=== PATIENT | female | born 1960 | race Caucasian/White ===

== ENCOUNTER 2021-10-01 22:54 | Inpatient (IN) | payer SELFPAY ==
[2021-10-02 00:23] LABS: Absolute Lymphocytes (CBC) 1.6 K/uL (0.7-4.9); Hematocrit 39.1 % (36.0-45.0); Lymphocytes % 29.1 % (15.3-44.8); MCV 91.9 fL (80-100); MPV 7.7 fL (7.6-11.3); RBC Red Blood Cell Count 4.26 M/uL (3.86-4.86)
[2021-10-02 00:31] LABS: Protime INR 0.96
[2021-10-02 00:43] LABS: ALT/SGPT 22 U/L (12-78); AST/SGOT 18 U/L (15-37); Albumin 4.2 g/dL (3.4-5.0); Alkaline Phosphatase 78 U/L (45-117); BUN Blood Urea Nitrogen 16 mg/dL (7-18); Bicarbonate 28 mmol/L (21-32); Bilirubin Direct < 0.1 mg/dL (0-0.2); Bilirubin Total 0.3 mg/dL (0.2-1.0); Creatine Phosphokinase 132 U/L (26-192); Glomerular Filtration Rate 80 ml/min (=/>90); Glucose Level 109 mg/dL (74-106); Lipase 151 U/L (73-393); Potassium 3.5 mmol/L (3.5-5.1); Protein, Total 6.9 g/dL (6.4-8.2); Sodium Level 136 mmol/L (136-145)
[2021-10-02 00:44] LABS: Troponin High Sensitivity 153.7 pg/mL (<58.9)
[2021-10-02 00:54] LABS: Urine Blood Trace-intact (Negative); Urine Glucose Negative (Negative); Urine Protein Negative (Negative)
[2021-10-02 01:21] LABS: Barbiturates NEGATIVE (NEGATIVE); Benzodiazepines NEGATIVE (NEGATIVE); Cocaine NEGATIVE (NEGATIVE); METHAMPHETAM NEGATIVE (NEGATIVE); Methadone NEGATIVE (NEGATIVE); Opiates NEGATIVE (NEGATIVE); Phencyclidine NEGATIVE (NEGATIVE); THC Cannibis NEGATIVE (NEGATIVE)
--- NOTE | 2021-10-02 01:50 | ER ---
Nurse's Notes [facility] Name: Monse Clements Age: 61 yrs Sex: Female : 1960 Arrival Date: 10/01/2021 Time: 22:57 Bed 24 Private MD: Diagnosis: Confusion, elevated troponin level Presentation: 10/01 23:05 Chief complaint: Patient's son or daughter states: her dad called her at 2222 to tell bb her pt was confused, repeating same questions over and over couldn't remember what they did that night. 23:16 Coronavirus screen: At this time, the client does not indicate any symptoms associated bb with coronavirus-19. Ebola Screen: No symptoms or risks identified at this time. Initial Sepsis Screen: Does the patient meet any 2 criteria? No. Patient's initial sepsis screen is negative. Does the patient have a suspected source of infection? No. Patient's initial sepsis screen is negative. Risk Assessment: Do you want to hurt yourself or someone else? Patient reports no desire to harm self or others. Onset of symptoms was October 01, 2021 at 21:00. 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 - Social history:: Smoking status: Patient denies any tobacco usage or history of. Screenin/16 02:04 Abuse screen: Denies threats or abuse. Denies injuries from another. Nutritional tw5 screening: No deficits noted. Tuberculosis screening: No symptoms or risk factors identified. Fall Risk Mental Status- Overestimates/Forgets Limitations (15 pts.). Assessment: 10/01 23:41 General: Appears comfortable, Behavior is calm, cooperative. Pain: Denies pain. Neuro: ll3 Level of Consciousness is awake, alert, obeys commands, Oriented to person, place, Speech is normal, Facial symmetry appears normal, Reports dizziness, since 2342. Cardiovascular: Patient's skin is warm and dry. Respiratory: Respiratory effort is even, unlabored, Respiratory pattern is regular, symmetrical. Derm: Skin is pink, warm \\T\\ dry. 10/02 02:02 Reassessment: No changes from previously documented assessment. Patient and/or family tw5 updated on plan of care and expected duration. Pain level reassessed. Patient is alert, oriented x 3, equal unlabored respirations, skin warm/dry/pink. Neuro: Level of Consciousness is awake, alert, obeys commands, Oriented to person, place. Vital Signs: 10/01 23:16 BP 142 / 82; Pulse 75; Resp 18 S; Temp 98.2(O); Pulse Ox 100% on R/A; Weight 40.82 kg bb (R); Height 5 ft. 2 in. (157.48 cm) (R); Pain 0/10; 10/02 02:04 BP 130 / 82; Pulse 70; Resp 18; Pulse Ox 100% on R/A; tw5 10/01 23:16 Body Mass Index 16.46 (40.82 kg, 157.48 cm) bb ED Course: 10/01 22:57 Patient arrived in ED. bp1 23:11 Guilherme Taylor MD is Attending Physician. 7 23:16 Princess Young is Primary Nurse. tw5 23:17 Triage completed. bb 23:17 Arm band placed on Patient placed in an exam room, on a stretcher, on cardiac tech, bb on pulse oximetry. Family accompanied patient. 23:[address] via stretcher. tw5 23:37 CT Stroke Brain w/o Contrast In Process Unspecified. EDMS 23:58 Stroke CXR 1 View In Process Unspecified. EDMS 10/02 00:00 Inserted saline lock: 20 gauge in right antecubital area, using aseptic technique. ll3 Blood collected. 00:44 Notified ED physician of a critical lab result(s). troponin of 153.7 Dr Taylor notified.bb 01:48 Jomar Garcia MD is Hospitalizing Provider. 7 02:04 Patient has correct armband on for positive identification. Placed in gown. Bed in low tw5 position. Call light in reach. Side rails up X 1. Adult w/ patient. 02:04 No provider procedures requiring assistance completed. tw5 02:04 COVID swab sent to lab. tw5 02:06 SARS-COV-2 RT PCR (Document "Date of Onset" if Symptomatic) Sent. tw5 03:41 Patient admitted, IV remains in place. tw5 Administered Medications: 02:02 Drug: Aspirin Chewable Tablet 324 mg Route: PO; 03:41 Follow up: Response: No adverse reaction Medication: 02:04 VIS not applicable for this client. Outcome: 01:49 Decision to Hospitalize by Provider. 7 03:41 Admitted to ER Hold. Please see [facility] for further documentation. 03:41 Condition: stable 03:41 Instructed on the need for admit. 15:42 Patient left the ED. jh6 Signatures: Dispatcher [employer] EDMS Maureen Hdz RN RN Marielos Caceres [facility] Guilherme Taylor MD MD 7 Princess Young [facility] Kemi Agarwal RN RN 3 Sylvie Felton RN RN 6
--- NOTE | 2021-10-02 01:50 | EDPHYS ---
Physician Documentation [facility] Name: Monse Clements Age: 61 yrs Sex: Female : 1960 Arrival Date: 10/01/2021 Time: 22:57 Bed 24 Private MD: ED Physician Guilherme Taylor HPI: 10/01 23:15 This 61 yrs old Female presents to ER via Ambulatory with complaints of Confusion, mh7 Anxiety. 23:15 The patient presents with confusion, memory problem, keeps repeating questions.. mh7 23:15 Onset: The symptoms/episode began/occurred today. mh7 23:15 Possible causes: unknown. Associated signs and symptoms: Pertinent negatives: abdominal mh7 pain, agitation, ataxia, blurred vision, chest pain, combativeness, diaphoresis, diarrhea, dizziness, headache, lightheadedness, nausea, numbness, palpitations, seizure, shortness of breath, tingling, vertigo, vomiting, weakness. Current symptoms: In the emergency department the patient's symptoms are unchanged from the initial presentation. Patient's baseline: Neuro: alert and fully oriented, Motor: no deficits, Ambulation: walks without assistance, Speech: normal. 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 - Social history:: Smoking status: Patient denies any tobacco usage or history of. ROS: 23:15 Constitutional: Negative for fever, chills, and weight loss, Eyes: Negative for injury, mh7 pain, redness, and discharge, ENT: Negative for injury, pain, and discharge, Neck: Negative for injury, pain, and swelling, Cardiovascular: Negative for chest pain, palpitations, and edema, Respiratory: Negative for shortness of breath, cough, wheezing, and pleuritic chest pain, Abdomen/GI: Negative for abdominal pain, nausea, vomiting, diarrhea, and constipation, Back: Negative for injury and pain, : Negative for injury, bleeding, discharge, and swelling, MS/Extremity: Negative for injury and deformity, Skin: Negative for injury, rash, and discoloration, Psych: Negative for depression, anxiety, suicide ideation, homicidal ideation, and hallucinations, Allergy/Immunology: Negative for hives, rash, and allergies, Endocrine: Negative for neck swelling, polydipsia, polyuria, polyphagia, and marked weight changes, Hematologic/Lymphatic: Negative for swollen nodes, abnormal bleeding, and unusual bruising. Exam: 23:15 Constitutional: This is a well developed, well nourished patient who is awake, alert, mh7 and in no acute distress. Head/Face: Normocephalic, atraumatic. Eyes: Pupils equal round and reactive to light, extra-ocular motions intact. Lids and lashes normal. Conjunctiva and sclera are non-icteric and not injected. Cornea within normal limits. Periorbital areas with no swelling, redness, or edema. ENT: Nares patent. No nasal discharge, no septal abnormalities noted. Tympanic membranes are normal and external auditory canals are clear. Oropharynx with no redness, swelling, or masses, exudates, or evidence of obstruction, uvula midline. Mucous membranes moist. Neck: Trachea midline, no thyromegaly or masses palpated, and no cervical lymphadenopathy. Supple, full range of motion without nuchal rigidity, or vertebral point tenderness. No Meningismus. Chest/axilla: Normal chest wall appearance and motion. Nontender with no deformity. No lesions are appreciated. Cardiovascular: Regular rate and rhythm with a normal S1 and S2. No gallops, murmurs, or rubs. Normal PMI, no JVD. No pulse deficits. Respiratory: Lungs have equal breath sounds bilaterally, clear to auscultation and percussion. No rales, rhonchi or wheezes noted. No increased work of breathing, no retractions or nasal flaring. Abdomen/GI: Soft, non-tender, with normal bowel sounds. No distension or tympany. No guarding or rebound. No evidence of tenderness throughout. Back: No spinal tenderness. No costovertebral tenderness. Full range of motion. Skin: Warm, dry with normal turgor. Normal color with no rashes, no lesions, and no evidence of cellulitis. MS/ Extremity: Pulses equal, no cyanosis. Neurovascular intact. Full, normal range of motion. 23:15 Neuro: Orientation: to person, place, Mentation: is normal, Memory: recent memory is impaired, Cranial nerves: grossly normal, Cerebellar function: is grossly normal, Motor: is normal, Sensation: is normal, Gait: is steady, at a normal pace, without difficulty, seizure activity, is not displayed by the patient, Abnormal movements: there are no abnormal movements. 23:15 Psych: Behavior/mood is cooperative, Affect is calm, Oriented to person, place, Patient has no thoughts/intents to harm self or others. Recent memory is impaired. Delusions/hallucinations are not present. Vital Signs: 23:16 BP 142 / 82; Pulse 75; Resp 18 S; Temp 98.2(O); Pulse Ox 100% on R/A; Weight 40.82 kg bb (R); Height 5 ft. 2 in. (157.48 cm) (R); Pain 0/10; 10/02 02:04 BP 130 / 82; Pulse 70; Resp 18; Pulse Ox 100% on R/A; tw5 10/01 23:16 Body Mass Index 16.46 (40.82 kg, 157.48 cm) MDM: 01:46 Differential Diagnosis: CVA, electrolyte abnormality, alcohol intoxication, [facility] hypoglycemia, intracranial bleed, overdose, seizure, sepsis, TIA, UTI, volume depletion. Data reviewed: vital signs, nurses notes, lab test result(s), cardiac enzymes, CBC, electrolytes, urinalysis, EKG, radiologic studies, CT scan, plain films. Data interpreted: Pulse oximetry: on room air is 100 %. Interpretation: normal. Counseling: I had a detailed discussion with the patient and/or guardian regarding: the historical points, exam findings, and any diagnostic results supporting the discharge/admit diagnosis, the presence of at least one elevated blood pressure reading (>120/80) during this emergency department visit, lab results, radiology results, the need for further work-up and treatment in the hospital. Response to treatment: the patient's symptoms have mildly improved after treatment. Physician consultation: Alec Fajardo MD was contacted at 00:50, regarding patient's condition, and will see patient in inpatient room. 01:[address] [facility] 10/01 23:34 Order name: Basic Metabolic Panel; Complete Time: 00:46 [facility] 10/01 23:34 Order name: CBC with Diff; Complete Time: 00:41 [facility] 10/01 23:34 Order name: CPK; Complete Time: 00:46 [facility] 10/01 23:34 Order name: Ckmb; Complete Time: 00:46 10/01 23:34 Order name: Hepatic Function; Complete Time: 00:46 10/01 23:34 Order name: Lipase; Complete Time: 00:46 10/01 23:34 Order name: Magnesium; Complete Time: 00:46 10/01 23:34 Order name: Protime (+inr); Complete Time: 00:41 10/01 23:34 Order name: Ptt, Activated; Complete Time: 00:41 10/01 23:34 Order name: UDS; Complete Time: 01:33 10/01 23:34 Order name: Troponin High Sensitivity; Complete Time: 00:46 10/01 23:35 Order name: ETOH Level; Complete Time: 00:48 10/01 23:35 Order name: Acetaminophen; Complete Time: 00:46 10/01 23:35 Order name: Salicylate; Complete Time: 01:33 [facility] 10/02 00:01 Order name: Glucose, Ancillary Testing; Complete Time: 00:03 [facility] 10/02 00:03 Order name: AMMONIA; Complete Time: 01:33 10/02 00:54 Order name: Urine Dipstick-Ancillary; Complete Time: 01:33 [facility] 10/02 01:52 Order name: SARS-COV-2 RT PCR (Document "Date of Onset" if Symptomatic) 3 10/02 02:11 Order name: CKMB Creatine Kinase MB [facility] 10/02 02:11 Order name: CKMB Creatine Kinase MB [facility] 10/02 02:11 Order name: CKMB Creatine Kinase MB [facility] 10/02 02:11 Order name: CKMB Creatine Kinase MB [facility] 10/02 02:11 Order name: Creatine Phosphokinase [facility] 10/02 02:11 Order name: Creatine Phosphokinase [facility] 10/02 02:11 Order name: Creatine Phosphokinase [facility] 10/02 02:11 Order name: Creatine Phosphokinase [facility] 10/02 02:11 Order name: Lipid Profile [facility] 10/02 02:11 Order name: Lipid Profile [facility] 10/02 04:39 Order name: Troponin High Sensitivity [facility] 10/02 05:58 Order name: Phosphorus [facility] 10/01 23:31 Order name: CT Stroke Brain w/o Contrast kb 10/01 23:34 Order name: Stroke CXR [address] [facility] 10/01 23:34 Order name: EKG; Complete Time: 23:35 [facility] 10/01 23:34 Order name: Accucheck; Complete Time: 00:04 [facility] 10/01 23:34 Order name: Cardiac monitoring; Complete Time: 23:36 [facility] 10/01 23:34 Order name: EKG - Nurse/Tech; Complete Time: 23:36 [facility] 10/01 23:34 Order name: IV Saline Lock; Complete Time: 00:26 [facility] 10/01 23:34 Order name: Labs collected and sent; Complete Time: 00:26 [facility] 10/01 23:34 Order name: NPO; Complete Time: 00:04 [facility] 10/01 23:34 Order name: O2 Per Protocol; Complete Time: 23:44 [facility] 10/01 23:34 Order name: O2 Sat Monitoring; Complete Time: 23:44 [facility] 10/01 23:34 Order name: Stroke Swallow Screen; Complete Time: 01:26 [facility] 10/01 23:34 Order name: Urine Dipstick-Ancillary (obtain specimen); Complete Time: 00:55 [facility] 10/02 02:11 Order name: Heart Healthy [facility] 10/02 05:58 Order name: Magnesium [facility] 10/02 06:20 Order name: Potassium [facility] 10/02 07:52 Order name: US [facility] 10/02 09:12 Order name: Troponin High Sensitivity [facility] 10/02 14:38 Order name: Troponin High Sensitivity [facility] 10/02 15:15 Order name: MRI [facility] Administered Medications: 02:02 Drug: Aspirin Chewable Tablet 324 mg Route: PO; tw5 03:41 Follow up: Response: No adverse reaction tw5 Disposition Summary: 10/02/21 01:49 Hospitalization Ordered Hospitalization Status: Inpatient Admission [facility] Provider: Jomar Garcia Rita Condition: Stable [facility] Problem: [facility] Symptoms: have improved [facility] Bed/Room Type: Standard [facility] Location: Telemetry/MedSurg (Inpatient)(10/02/21 15:01) dw Room Assignment: [facility](10/02/21 15:01) Diagnosis - Confusion, elevated troponin level [facility] Forms: - Medication Reconciliation Form [facility] - SBAR form [facility] Signatures: Dispatcher [employer] EDMS Tara Biswas RN RN mw Woody, Diana, RN RN dw Ballard, Brenda, Guilherme Dan RN, MD MD [facility] Princess Young tw5 Corrections: (The following items were deleted from the chart) 02:48 01:49 Telemetry/MedSurg (Inpatient) 7 mw 02:48 01:49 [facility] mw 15:01 02:48 [facility] ER HOLD mw dw 15:01 02:48 ERHOLD- mw
[2021-10-02] MEDS ORDERED: ASPIRIN 81 MG CHEWABLE TABLET ONE (01:59)
[2021-10-02] MEDS ORDERED: ONDANSETRON 4 MG/2 ML VIAL IV PRN (02:04)
--- NOTE | 2021-10-02 03:09 | P.HP ---
Certification for Inpatient Patient admitted to: Observation With expected LOS: <2 Midnights Patient will require the following post-hospital care: None Practitioner: I am a practitioner with admitting privileges, knowledge of patient current condition, hospital course, and medical plan of care. Services: Services provided to patient in accordance with Admission requirements found in Title 42 Section 412.3 of the Code of Federal Regulations Patient History Date of Service: 10/02/21 Reason for admission: Altered mentation History of Present Illness: 61-year-old female patient with no significant medical history who was evaluated for episode of altered mentation that occurred around dinner on the day prior to evaluation in the ER. Patient was said to have had issues with repeating same question over and over again and memory impairment. No overt episode of inability to speak well, double vision, headaches given. No focal weakness noted. She was worked up in the ED with a CT of the head that showed no acute intracranial bleed and initial labs revealed elevated troponin of 149 prompting further work-up. No issues with fever, chills, rigor, nausea, vomiting given. No prior cardiac work-up. Review of Systems General: Unremarkable Eyes: Unremarkable ENT: Unremarkable Respiratory: Unremarkable Cardiovascular: Unremarkable Gastrointestinal: Unremarkable Genitourinary: Unremarkable Musculoskeletal: Unremarkable Integumentary: Unremarkable Neurological: Confusion, Other (change in memory) Physical Examination - Physical Exam General: Alert, Oriented x3 HEENT: Atraumatic, Normocephalic Neck: Supple Respiratory: Normal air movement Cardiovascular: Normal pulses, Regular rate/rhythm Gastrointestinal: Soft and benign, Non-distended Musculoskeletal: No swelling Neurological: Normal speech - Studies Laboratory Data (last 24 hrs) 10/01/21 23:59: PT 10.5, INR 0.96, APTT 29.5 10/01/21 23:59: WBC 5.5, Hgb 13.4, Hct 39.1, Plt Count 228 10/01/21 23:59: Sodium 136, Potassium 3.5, BUN 16, Creatinine 0.83, Glucose 109 H, Magnesium 2.0, Total Bilirubin 0.3, AST 18, ALT 22, Alkaline Phosphatase 78, Lipase 151 Assessment and Plan - Plan NSTEMI Altered mentation Memory impairment TIA Plan: Present episode of altered mentation is suspicious for TIA/CVA. CT of the abdomen revealed no acute intracranial bleed. MRI of the head has been ordered to further evaluate. Will obtain carotid Doppler ultrasound and echocardiogram as work-up of TIA. Elevated troponin of 149 noted, will trend troponin and start aspirin therapy. Will check lipid panel. Will obtain echocardiogram to evaluate. Cardiology to assist with management recommendation. Prophylaxis: Lovenox for DVT prophylaxis CODE STATUS: Full code Disposition: Pending full work-up. - Advance Directives Does patient have a Living Will: No Does patient have a Durable POA for Healthcare: No
[2021-10-02 03:49] VITALS: BMI 16.2
[2021-10-02] MEDS ORDERED: NA CHLORIDE 0.9% 1,000 ML ONE (04:09)
[2021-10-02] MEDS: NA CHLORIDE 0.9% 1,000 ML IV SCH ×3 (04:11→20:49)
[2021-10-02 04:39] LABS: Troponin High Sensitivity 109.5 pg/mL (<58.9)
[2021-10-02 05:58] LABS: Phosphorus 2.9 mg/dL (2.5-4.9)
[2021-10-02 06:19] LABS: Potassium 3.9 mmol/L (3.5-5.1)
--- NOTE | 2021-10-02 07:51 | RAD REPORT ---
EXAM DESCRIPTION: - CP - 10/02/2021 6:42 am CLINICAL HISTORY: pt with TIA COMPARISON: No comparisons TECHNIQUE: Real-time sonographic evaluation of bilateral carotid and vertebral systems was performed . Hines scale and Doppler interrogation were performed with waveform tracing bilaterally. FINDINGS: Normal high resistance waveforms are noted in both external carotid arteries. The common c arotid arteries and internal carotid arteries show normal low resistance waveforms. No significant plaque formation is seen. No dissection. Peak systolic and end diastolic velocity valu es and the ICA/CCA ratios are in the non-hemodynamically significant range. Antegrade flow seen in both vertebral arteries. Velocity values and ratios were recorded and are retained in the patient's imaging records. IMPRESSION: No significant atherosclerotic changes noted. No evidence of a hemodynamically significant stenosis.
[2021-10-02] MEDS: ASPIRIN EC 81 MG TAB PO SCH (09:00)
[2021-10-02] MEDS: ENOXAPARIN 40 MG/0.4 ML SQ SCH (09:00)
[2021-10-02 09:37] LABS: CKMB Creatine Kinase MB 1.1 ng/mL (1.0-3.6)
--- NOTE | 2021-10-02 13:35 | P.PN ---
Date of Service: 10/02/21 Patient seen and examined. She is currently awake and alert. She denies any weakness and has no recollection of the events. Troponin was elevated but trended down. No chest pain Diagnosis: I suspect patient's transient memory loss secondary to transient global amnesia. Could also be TIA versus seizures. No seizure activity witnessed. Plan: Neurologic symptoms completely resolved. Aspirin. Cardiology consult. IV hydration. Echocardiogram ordered.
--- NOTE | 2021-10-02 15:14 | RAD REPORT ---
EXAM DESCRIPTION: MRI - Brain Wo Cont - 10/02/2021 3:03 pm CLINICAL HISTORY: pt with TIA symptoms COMPARISON: Ct Stroke Brain Wo Cont dated 10/01/2021 TECHNIQUE: Sagittal T1-weighted images were obtained along with axial PD, heavily T2-weighted and T2 -FLAIR images. Axial DWI and ADC mapping sequences were also obtained along with coronal heavily T2-w eighted images. FINDINGS: No intracranial hemorrhage, mass or acute infarction. No significant atrophy. Ventricles a re normal. Only trace amounts of chronic ischemic change scattered in the cerebral white matter. Ther e is no edema or shift of midline structures. No extra-axial fluid collections. Hines-matter/white mat ter junction is preserved. Signal voids are seen as a normal finding in the major intracranial vessel s. No globe or orbital content abnormality. Mastoid air cells and paranasal sinuses are clear. IMPRESSION: No acute or subacute infarction changes. No acute intracranial finding.
[2021-10-02] MEDS ORDERED: ACETAMINOPHEN 500 MG TAB PO ONE (15:57)
[2021-10-02 17:04] LABS: Creatine Phosphokinase 105 U/L (26-192)
[2021-10-02 17:07] LABS: CKMB Creatine Kinase MB < 1.0 ng/mL (1.0-3.6)
[2021-10-02] MEDS ORDERED: MELATONIN 5 MG TABLET PO PRN (21:51)
[2021-10-03] MEDS ORDERED: ACETAMINOPHEN 325 MG TABLET PO PRN (04:40)
[2021-10-03 04:53] VITALS: O2SAT 100
[2021-10-03 05:06] LABS: Creatine Phosphokinase 77 U/L (26-192)
[2021-10-03 05:07] LABS: CKMB Creatine Kinase MB < 1.0 ng/mL (1.0-3.6)
[2021-10-03] MEDS: NA CHLORIDE 0.9% 1,000 ML IV SCH ×2 (05:40→08:34)
[2021-10-03] MEDS: ASPIRIN EC 81 MG TAB PO SCH (08:35)
[2021-10-03] MEDS: ENOXAPARIN 40 MG/0.4 ML SQ SCH (08:42)
[2021-10-03 12:27] VITALS: BP 118/71; TEMP 98.6
--- NOTE | 2021-10-03 15:05 | P.DS ---
Admission Date: 10/02/21 Discharge Date: 10/03/21 Disposition: ROUTINE DISCHARGE Discharge Condition: FAIR Reason for Admission: Altered mentation - Problems (1) AMS (altered mental status) Current Visit: Yes Status: Acute (2) Transient global amnesia Current Visit: Yes Status: Acute (3) Elevated troponin Current Visit: Yes Status: Acute Brief History of Present Illness: 61-year-old female patient with no significant medical history who was evaluated for episode of altered mentation that occurred around dinner on the day prior to evaluation in the ER. Patient was said to have had issues with repeating same q uestion over and over again and memory impairment. No focal weakness noted. She was worked up in the ED with a CT of the head that showed no acute intracranial bleed and initial labs revealed elevated troponin of 149 prompting further work-up. Patient hospitalized for further evaluation and management. Hospital Course: Troponin trended down. No complaint of chest pain or shortness of breath, no cardiac symptoms, EKG unremarkable. Patient was alert and oriented during the hospital stay. MRI of the brain done did not show any acute intracranial issue. Case discussed with neurology-Dr. Fajardo. Differential diagnosis for the transient altered mental status include transient global amnesia or seizures. No witnessed seizures. Most probable diagnosis is transient global amnesia. No indication for antiepileptics at this time. Patient seen by cardiology Dr. Duncan, no ACS. Dr. Duncan recommend to continue work-up as outpatient with echocardiogram and possibly stress test. Patient has been asymptomatic and deemed stable for discharge. She is prescribed baby aspirin. Diet modification with low-fat low-cholesterol diet also advised. Dr. Fajardo also recommended follow-up with him in the office. Vital Signs/Physical Exam: Temp Pulse Resp BP Pulse Ox 98.6 F 64 16 118/71 99 10/03/21 12:00 10/03/21 12:00 10/03/21 12:00 10/03/21 12:00 10/03/21 12:00 General: Alert, In no apparent distress, Oriented x3 HEENT: Mucous membr. moist/pink, EOMI, Sclerae nonicteric Neck: Supple, JVD not distended Respiratory: Clear to auscultation bilaterally, Normal air movement Cardiovascular: No edema, Regular rate/rhythm, Normal S1 S2 Gastrointestinal: Normal bowel sounds, Soft and benign, Non-distended, No tenderness Musculoskeletal: No swelling Integumentary: No rashes Neurological: Normal speech, Normal strength at 5/5 x4 extr, Cranial nerves 3-12 intact Laboratory Data at Discharge: WBC 5.5 K/uL (4.3-10.9) 10/01/21 23:59 Hgb 13.4 g/dL (12.0-15.0) 10/01/21 23:59 Hct 39.1 % (36.0-45.0) 10/01/21 23:59 Plt Count 228 K/uL (152-406) 10/01/21 23:59 PT 10.5 SECONDS (9.5-12.5) 10/01/21 23:59 INR 0.96 10/01/21 23:59 APTT 29.5 SECONDS (24.3-36.9) 10/01/21 23:59 Sodium 136 mmol/L (136-145) 10/01/21 23:59 Potassium 3.9 mmol/L (3.5-5.1) 10/02/21 04:00 BUN 16 mg/dL (7-18) 10/01/21 23:59 Creatinine 0.83 mg/dL (0.55-1.3) 10/01/21 23:59 Glucose 109 mg/dL (74-106) H 10/01/21 23:59 Phosphorus 2.9 mg/dL (2.5-4.9) 10/02/21 04:00 Magnesium 2.0 mg/dL (1.8-2.4) 10/02/21 04:00 Total Bilirubin 0.3 mg/dL (0.2-1.0) 10/01/21 23:59 AST 18 U/L (15-37) 10/01/21 23:59 ALT 22 U/L (12-78) 10/01/21 23:59 Alkaline Phosphatase 78 U/L (45-117) 10/01/21 23:59 Triglycerides 83 mg/dL (<150) 10/03/21 04:02 Cholesterol 204 mg/dL (<200) H 10/03/21 04:02 HDL Cholesterol 92 mg/dL (40-60) H 10/03/21 04:02 Cholesterol/HDL Ratio 2.22 10/03/21 04:02 Lipase 151 U/L (73-393) 10/01/21 23:59 Home Medications: Latanoprost [Xelpros] 1 drop EACH EYE BEDTIME 10/02/21 Melatonin 10 mg PO BEDTIME 10/02/21 Aspirin [Aspirin EC 81 MG] 81 mg PO DAILY #30 tablet. 10/03/21 New Medications: Aspirin [Aspirin EC 81 MG] 81 mg PO DAILY #30 tablet. Diet: [facility] Activity: Ad rosy Followup: Jorge Alberto Duncan MD [ACTIVE - CAN ADMIT] - 1 Week (Please call office for arrangement for Echocardiogram and stress test.) NONE,NONE [Primary Care Provider] - Alec Fajardo MD [ASSOCIATE-ACTIVE - CAN ADMIT] - (Within 2 weeks.) Time spent managing pt's care (in minutes): 35
--- NOTE | 2021-10-03 19:36 | CON ---
Date of Consultation: 10/03/[address] Vaughn on 10/02/2021. I saw the patient on 10/03/2021. Reason For Consultation: Elevated troponin. History Of Present Illness: Ms. Clements is a 61-year-old woman, who has a history of anxiety and depres tenzin for which she takes Prozac. She also takes a medicine called Xelpros eye drop for glaucoma. Manas hastings occasionally takes melatonin for sleep. Does not have a primary care physician. Came in with anxi ety and confusion that lasted few hours. She was found to have slightly elevated troponin of 109 cj t went down to 44. Never had any chest pain, nausea, vomiting, diaphoresis, PND, orthopnea, pedal ed yajaira, palpitation, or syncope. Allergies: SHE HAS NO ALLERGIES. Review of Systems: Noncontributory. Social History: Noncontributory. Family History: Noncontributory. Physical Examination: Was done by Dr. Vaughn and was normal. Diagnostic Data: Showed a negative carotid, negative MRI, negative EKG, negative chest x-ray. Impression: My impression is that her elevated troponin is not clinically significant. This is not an acute coronary syndrome. I think she has transient global amnesia. I would suggest baby aspirin and I suggest an outpatient cardiac workup including an ultrasound of her heart as well as a stress test. I will make arrangements for that as an outpatient. She can go home otherwise. FOZIA/FLOR Voice ID: [id number] Report ID: [id number]
--- NOTE | 2021-10-04 10:40 | RAD REPORT ---
EXAM DESCRIPTION: CT - Ct Stroke Brain Wo Cont - 10/02/2021 6:50 am ADDENDUM #1 CODE STROKE PROTOCOL CONFERENCE CALL: The findings were verbally discussed via telephone conference w mikki Taylor on 10/01/2021 11:59 PM CDT. The results were acknowledged and understood. Electronically signed by: Naga Corbin MD 10/01/2021 11:59 PM CDT End of Addendum EXAM DESCRIPTION: CT Head Without Intravenous Contrast CLINICAL HISTORY: R/o stroke TECHNIQUE: Axial computed tomography images of the head/brain without intravenous contrast. Sagitt al and coronal reformatted images were created and reviewed. This CT exam was performed using one o r more of the following dose reduction techniques: automated exposure control, adjustment of the mA and/or kV according to patient size, and/or use of iterative reconstruction technique. COMPARISON: No relevant prior studies available. FINDINGS: Brain: Unremarkable. No hemorrhage. No significant white matter disease. No edema. Ventricles: Unremarkable. No ventriculomegaly. Bones/joints: Unremarkable. No acute fracture. Soft tissues: Unremarkable. Sinuses: Unremarkable as visualized. No acute sinusitis. Mastoid air cells: Unremarkable as visualized. No mastoid effusion. IMPRESSION: No acute hemorrhage, focal mass or large territory infarction. Electronically signed by: Naga Corbin MD 10/01/2021 11:49 PM CDT Due to temporary technical issues with the PACS/Fluency reporting system, reports are being signed by the in house radiologists without review as a courtesy to insure prompt reporting. The interpreting radiologist is fully responsible for the content of the report.
--- NOTE | 2021-10-04 10:48 | RAD REPORT ---
EXAM DESCRIPTION: RAD - Chest Single View - 10/01/2021 11:56 pm CLINICAL HISTORY: AMS TECHNIQUE: Frontal view of the chest. COMPARISON: No relevant prior studies available. FINDINGS: Lungs: Hyperinflation. No focal consolidation. Pleural space: Unremarkable. No pneumothorax. Heart: Unremarkable. No cardiomegaly. Mediastinum: Unremarkable. Bones/joints: Unremarkable. IMPRESSION: No acute disease. Electronically signed by: Naga Corbin MD 10/02/2021 2:01 AM CDT Due to temporary technical issues with the PACS/Fluency reporting system, reports are being signed by the in house radiologists without review as a courtesy to insure prompt reporting. The interpreting radiologist is fully responsible for the content of the report.
--- NOTE | 2021-10-04 12:47 | EKG ---
Test Date: 2021-10-01 Test Time: 23:35:18 Director Of Acquisitions: INGE MEASUREMENT RESULTS: Intervals: Rate: 73 AR: 136 QRSD: 82 QT: 384 QTc: 423 [place]: P: 76 AR: 136 QRS: 80 T: 71 INTERPRETIVE STATEMENTS: Normal sinus rhythm Possible Left atrial enlargement Septal infarct, age undetermined Abnormal ECG No previous ECG available for comparison Electronically Signed On 10-04-21 12:43:45 CDT by Naveed Jasso
--- OUTSIDE RECORDS SUMMARY | 2021-10-07 07:43 | XMS REPORT | Continuity of Care Document ---
:1960 Author Organization [facility] Address [address] [place] [address] Care Team Providers Name Role Phone Unavailable Unavailable Unavailable Problems This patient has no known problems. Allergies, Adverse Reactions, Alerts This patient has no known allergies or adverse reactions. Medications This patient has no known medications. Procedures This patient has no known procedures. Results Test Description Test Time Test Comments Results Result [facility] e Comments BREAST ULTRASOUND 2020-02-27 BILATERAL 14:17:39 Name: Bj : 1960 Sex: F - BREAST ULTRASOUND BILATERALULTRASOUND OF BOTH BREASTS AND BOTH AXILLA: 02/27/2020CLINICAL: Recall from screening. Comparison is made to exams dated 07/10/2018 ultrasound, 02/16/2018 ultrasound - [facility] and 01/29/2016 ultrasound - [facility]. Real-time ultrasound of both breasts and both axilla was performed. Multiple bilateral subcentimeter simple and complicated cysts are noted, benign. The patient pointed to an area of palpable concern during the examination in the right breast at 10 o'clock, 4 cm from the nipple, which corresponds to a complicated cyst with layering debris measuring up to 1.5 cm, benign. On real-time imaging, moderate subareolar ductal ectasia is noted. No other abnormalities were seen sonographically in either breast or either axilla. IMPRESSION: BENIGN There is no sonographic evidence of malignancy. The bilateral subdural ductal ectasia and bilateral simple and complicated cysts are benign. Resume annual mammogram screening schedule is recommended. Marielena Mcrae M.D. cc/:02/27/2020 14:17:39 Entry: - 02/27/2020 15:18:50Imaging Technologist: Saige Palafox , [facility] sent: BIRADS 1-2 Normal Ultrasound BI-RADS: 2 Benign BREAST ULTRASOUND 2018-07-10 - BREAST ULTRASOUND BILATERAL 11:36:38 BILATERALULTRASOUND OF BOTH BREASTS AND BOTH AXILLA: 07/10/2018CLINICAL: 6 Month follow-up. Comparison is made to exams dated 02/16/2018 ultrasound - [facility] and 01/29/2016 ultrasound - [facility]. Color flow and real-time ultrasound of both breasts and both axilla were performed. Benign-appearing areas of fibrocystic change are again seen throughout both breasts. In particular, in the 10 o'clock, right breast, 4 cm the nipple, there is a 2 cm benign-appearing cyst corresponding to a palpable finding. The patient does not desire cyst aspiration at this time.No suspicious sonographic findings are seen in either breast or axilla. IMPRESSION: BENIGN There is no sonographic evidence of malignancy. Resume annual screening mammography, which will be due in December 2018.SUMMARY:Further follow up should be based on clinical concern. Otherwise, resume annual screening mammography, which will be due in December 2018.A negative mammogram and/or ultrasound report should not delay biopsy if a dominant or clinically suspicious mass is present. Not all breast cancers are identified by mammography or ultrasound. Mike Kelley M.D. pl/:07/10/2018 11:36:38 Senior Qa Tester: Saige Palafox , [facility] BIRADS 1-2 Normal Ultrasound BI-RADS: 2 Benign BREAST ULTRASOUND 2018-02-16 - BREAST ULTRASOUND BILATERAL 09:25:33 BILATERALULTRASOUND OF BOTH BREASTS AND BOTH AXILLA: 02/16/2018CLINICAL: Recall from screening. Comparison is made to exam dated 01/29/2016 ultrasound - [facility]. Real-time ultrasound of both breasts and both axilla was performed. No abnormalities were seen sonographically in either axilla. There are variably sized simple cysts in each breast. The largest is in the 1 o'clock, left breast, 5 cm from the nipple, 2.0 x 0.7 x 1.7 cm.No solid mass or focus of parenchymal distortion was imaged.In the 6 o'clock, right breast, 3 cm from the nipple, a thin walled cyst with few non-shadowing internal echoes measures 1.3 x 0.9 x 1.2 cm. A larger thin walled cyst with non-shadowing internal echoes is noted in the 10 o'clock, right breast, 4 cm from the nipple, 3.3 x 1.8 x 3.0 cm. This is correlates with the patient's palpable abnormality and the dominant mass on the screening mammogram of 01/17/2018. Both of these masses are unassociated with increased flow on color Doppler. IMPRESSION: PROBABLY BENIGN - FOLLOW-UP RECOMMENDEDEvidence of benign simple cysts and probably benign right breast complicated cysts. Precautionary 6 month sonographic follow up recommended for stability assessment. Caden Andre M.D. rb/:02/16/2018 09:25:33 Senior Qa Tester: Saige Grier, [facility]-RGletter sent: Short Term Follow Up Ultrasound BI-RADS: 3 Probably benign SCR MAMM 2018-01-23 - SCR MAMM BILATERAL BILATERAL ANN 13:55:58 ANN CAD CAD DIGITAL DIGITALBILATERAL DIGITAL SCREENING MAMMOGRAM 3D/2D WITH CAD: 01/17/2018CLINICAL: Asymptomatic. Digital breast tomosynthesis was performed in addition to routine CC and MLO views. Current mammographic images were evaluated by either a [employer] M-Vu or an iCAD version 7.2 computer aided detection system. Comparison is made to exams dated 11/10/2016 mammogram - [facility] and 01/13/2016 mammogram - [facility]. The tissue of both breasts is extremely dense, which lowers the sensitivity of mammography. There is a 3.6 cm oval mass with an obscured margin in the right breast at 11 o'clock, middle depth, 4 cm from the nipple. Other smaller oval masses with obscured margin are noted bilaterally.No other significant masses, calcifications, or other findings are seen in either breast. IMPRESSION: INCOMPLETE ASSESSMENT: ADDITIONAL IMAGING EVALUATION RECOMMENDEDThe bilateral oval masses with obscured margin are indeterminate. An ultrasound is recommended. Marielena Mcrae M.D. cc/:01/23/2018 13:55:58 Entry: cp - 01/23/2018 14:49:24Imaging Technologist: Jaci Carr MM, [facility] Mammographyletter sent: Additional Imaging Mammogram BI-RADS: 0 Indeterminate
== END 2021-10-03 15:26 | disposition home or self-care (01) | DRG 72 ==
LOC: ER 22:54 → ERHOLD 10-02 02:11 → 2ND 10-02 15:27 → OBSVTOIN 10-02 17:30
PROVIDERS: ADMIT Internal Medicine Nephrology; ATTEND Internal Medicine Nephrology
DX: G45.4 Transient global amnesia (principal); R77.8 Other specified abnormalities of plasma proteins; F41.8 Other specified anxiety disorders; H40.9 Unspecified glaucoma; Z20.822 Contact with and (suspected) exposure to COVID-19
CPT/HCPCS: 36415; 70450; 70551; 71045; 80048; 80061; 80076; 80307; 80320; 80329; 81003; 82140; 82550; 82553; 82947; 83690; 83735; 84100; 84132; 84484; 85025; 85610; 85730; 93005; 93880; 99285; G0378; J1650; J7030; U0003